=== PATIENT | female | born 1985 | race Caucasian/White ===

== ENCOUNTER → 2017-04-08 | Outpatient (CLI) | payer BC ==
--- NOTE | 2017-04-08 14:56 | RADRPT ---
PROCEDURE: XR Knee. CLINICAL INDICATION: Right knee pain. TECHNIQUE: Three views of the right knee are available for review. COMPARISON: None available FINDINGS: No acute fracture or dislocation is seen. Mild joint space narrowing at the medial tibio-femoral com partment is noted. No radiopaque foreign body is identified. Alignment is anatomic. No significant soft tissue swelling is present. IMPRESSION: 1. No acute fracture or dislocation is seen. 2. Mild joint space narrowing at the medial tibio-femoral compartment. RPTAT: [facility] .Nii Al MD, MD Date Time Electronically viewed and signed by .Nii Al MD, on 04/08/2017 14:55 .N/
== END | disposition home or self-care (01) ==
LOC: HKI 11:07
PROVIDERS: ATTEND Orthopaedic Surgery
DX: M25.561 Pain in right knee (principal); Z88.0 Allergy status to penicillin
CPT/HCPCS: G0463